=== PATIENT | female | born 2000 | race Caucasian/White ===

== ENCOUNTER 2020-09-16 07:50 | Emergency (ER) | payer OTHER, BC ==
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
[2020-09-16 08:32] LABS: CHLORIDE,CL 98 mmol/L (98-107); SODIUM,NA 133 mmol/L (136-145)
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
[2020-09-16] MEDS ORDERED: LORazepam 2 MG/ML SDV IVPUSH ONE (10:42)
[2020-09-16] MEDS ORDERED: LORazepam 1 MG Tab PO ONE (10:43)
== END 2020-09-16 10:20 ==
LOC: DL.ED 07:50
DX: F15.10 Other stimulant abuse, uncomplicated (principal); M25.552 Pain in left hip; R14.0 Abdominal distension (gaseous); M25.512 Pain in left shoulder; J45.909 Unspecified asthma, uncomplicated; F41.9 Anxiety disorder, unspecified; F32.9 Major depressive disorder, single episode, unspecified; Z88.8 Allergy status to other drugs, medicaments and biological substances; Z91.040 Latex allergy status; Z88.4 Allergy status to anesthetic agent; Z79.899 Other long term (current) drug therapy; Z20.828 Contact with and (suspected) exposure to other viral communicable diseases; V89.2XXA Person injured in unspecified motor-vehicle accident, traffic, initial encounter
CPT/HCPCS: 36415; 70450; 71250; 72125; 72128; 72131; 74176; 80053; 80305; 80307; 81003; 84703; 85025; 85610; 87635; 93005; 99285; A9270; 99284; U0002